=== PATIENT | male | born 1965 | race Caucasian/White ===

== ENCOUNTER 2020-05-14 15:37 | Emergency (ER) | payer BC, SELFPAY ==
[2020-05-14 15:49] VITALS: BP 137/84; PULSE 79; RESP 20; TEMP 36.9; O2SAT 94
--- NOTE | 2020-05-14 15:52 | ED.URI ---
HPI - URI/Sore Throat General Chief Complaint: Upper Respiratory Infection Stated Complaint: upper respiratory infection Source: patient and RN notes reviewed Limitations: no limitations History of Present Illness HPI Narrative: The patient, who is a smoker on several routine meds, presents with congestion. Patient states he has a least 1/2-week, 4 to 5-day history of scratchy throat , chills [w/o measured fever], congestion, myalgias with frontal/sinus headache and recurrence of positional/nighttime wheezing. Symptoms are mild, family members have been mildly unwell. No fever measured, CP, loss of taste/smell, S OB, sputum changes,N/V/D , travel history, calf pain/ edema . He reports he had chest CT in the last weeks, which was reportedly noncontributory. Related Data Home Medications Medication Instructions Recorded Confirmed atorvastatin 20 mg PO DAILY 07/14/19 07/14/19 escitalopram oxalate 10 mg PO DAILY 07/14/19 07/14/19 lisinopril 20 mg PO DAILY 07/14/19 07/14/19 omeprazole 20 mg PO DAILY 07/14/19 07/14/19 trazodone 100 mg PO HS 07/14/19 07/14/19 hydroxyzine HCl 05/14/20 Allergies Allergy/AdvReac Type Severity Reaction Status Date / Time No Known Allergies Allergy Verified 07/14/19 10:43 Review of Systems Review of Systems: Narrative: General/Constitutional: No weight loss,fever Eyes: N0: Redness,discharge Ears/Nose/Throat: No: Epistaxis,ear discharge Respiratory: Denies: Hemoptysis Gastrointestinal: No Vomiting, Bleeding-rectal Skin: No Lumps, eruption Neurologic: No Focal Weakness,Sz Hematologic: Denies: Petechiae/Purpura Psychiatric: No: Suicida ideationl All Other Systems: Reviewed and Negative PMFSH Comments At time of signature, agree with nursing past medical, surgical, social and family history. There is no relevant family history pertinent to the presenting complaint Exam Narrative: Exam Narrative: General Appearance: Well appearing, Well nourished EYE: PERRLA, Conjunctiva clear Ears: Auditory canal normal, TM normal Nose: Rhinorrhea, Mucousal erythema Mouth/Throat: MM moist, Uvula midline, Pharyngeal erythema Neck: Supple, No adenopathy Respiratory: No respiratory distress, Breath sounds equal, CTA inc on forced expiration. Cardiovascular: RRR, No JVD Musculoskeletal: Non tender, Normal strength Skin: Warm, Dry Neurological: A&O x3, CN II-XII intact Psychiatric: Normal mood, Normal affect Course Vital Signs Vital signs: Vital Signs Temperature 98.4 F 05/14/20 15:49 Pulse Rate 79 05/14/20 15:49 Respiratory Rate 20 05/14/20 15:49 Blood Pressure 137/84 05/14/20 15:49 Pulse Oximetry 94 05/14/20 15:49 Temperature 98.4 F 05/14/20 15:49 Pulse Rate 79 05/14/20 15:49 Respiratory Rate 20 05/14/20 15:49 Blood Pressure 137/84 05/14/20 15:49 Pulse Oximetry 94 05/14/20 15:49 Discharge Plan Discharge Clinical Impression: URI (upper respiratory infection) Qualifiers: URI type: unspecified URI Qualified Code(s): J06.9 - Acute upper respiratory infection, unspecified Patient Disposition: Home, Self-Care Condition: Stable Instructions: Antibiotic Form Prescriptions: New azithromycin 250 mg tablet See Rx Instructions .ROUTE .COMPLEX Qty: 6 RF: 0 codeine-guaifenesin 10-100 mg/5 mL liquid 7.5 ml PO Q6H PRN (Reason: cough) Qty: 118 RF: 0 benzonatate [Tessalon Perles] 100 mg capsule 100 mg PO TID Qty: 20 RF: 1 albuterol sulfate [Ventolin HFA] 90 mcg/actuation HFA aerosol inhaler 2 puff INHALATION QID PRN (Reason: shortness of breath or wheezing) Qty: 8.5 RF: 1 No Action hydroxyzine HCl 50 mg tablet RF: 0 atorvastatin 20 mg Tablet 20 mg PO DAILY RF: 0 lisinopril 20 mg Tablet 20 mg PO DAILY RF: 0 trazodone 100 mg Tablet 100 mg PO HS RF: 0 omeprazole 20 mg Capsule,Delayed Release(Dr/Ec) 20 mg PO DAILY RF: 0 escitalopram oxalate 10 mg Tablet 10 mg PO DAILY RF:
== END 2020-05-14 16:30 | disposition home or self-care (01) ==
PROVIDERS: Emergency Provider Emergency Medicine; PCP Family Medicine
DX: J06.9 Acute upper respiratory infection, unspecified (principal); Z20.828 Contact with and (suspected) exposure to other viral communicable diseases; E78.00 Pure hypercholesterolemia, unspecified; I10 Essential (primary) hypertension; K21.9 Gastro-esophageal reflux disease without esophagitis; F41.9 Anxiety disorder, unspecified; F32.9 Major depressive disorder, single episode, unspecified
CPT/HCPCS: 99213; G0463

== ENCOUNTER → 2020-07-13 15:18 | Outpatient (CLI) | payer BC, SELFPAY ==
--- NOTE | ~2020-07-13 | XR_ITS ---
XR chest 2V DATE: 07/13/2020 15:41 INDICATION: Respiratory tract infection TECHNIQUE: 2 views COMPARISON: 01/24/2017 two-view chest FINDINGS: Normal heart size. The lungs are hyperinflated, with relative flattening the diaphragm, sug gesting possible obstructive airways disease. No pulmonary infiltrate or consolidation or pulmonary m ass lesion is detected. No pleural effusion. No pneumothorax. IMPRESSION: Bilateral hyperinflation; no active cardiopulmonary disease Reviewed, dictated and finalized at location A. [employer] TECHNICAL OFFICER
== END ==
PROVIDERS: PCP Family Medicine; Visit Provider Family Medicine
DX: J98.8 Other specified respiratory disorders (principal); R91.8 Other nonspecific abnormal finding of lung field
CPT/HCPCS: 71046

== ENCOUNTER 2021-09-28 10:14 | Emergency (ER) | payer BC, SELFPAY ==
--- NOTE | ~2021-09-28 | XR_ITS ---
EXAMINATION: XR chest 2V DATE: 09/28/2021 10:48 INDICATION: Cough and fever. TECHNIQUE: Frontal and lateral views of the chest were obtained. COMPARISON: Chest 2 views 07/13/2020 FINDINGS: There are airspace opacities in basilar right lower lobe, consistent with pneumonia. No ple ural effusion or pneumothorax. The heart size is normal. IMPRESSION: 1. Right lower lobe pneumonia. Reviewed, dictated and finalized at location A.
--- NOTE | 2021-09-28 10:28 | ED.URI ---
HPI - URI/Sore Throat General Chief Complaint: Upper Respiratory Infection Stated Complaint: Cough,Body Aches,Chills,Congestion Time Seen by Provider: 09/28/21 10:34 Source: patient and RN notes reviewed Mode of arrival: ambulatory Limitations: no limitations History of Present Illness HPI Narrative: 56-year-old male presented for complaint of sinus congestion, body aches, fever/chills and rigors, rare nonproductive cough and pain with coughing, chest heaviness and shortness of breath for about 4 days. Fever at home 100.7 today. Endorses had similar symptoms approximately 1 week ago, tested negative. They had [facility]. Patient is boosted for Covid and had flu vaccine. He smokes 1 PPD. Uses as needed inhaler and Trelegy daily for mild COPD per pt. Recent sinus surgery 06/2021. Related Data Home Medications Medication Instructions Recorded Confirmed atorvastatin 20 mg PO DAILY 07/14/19 09/28/21 escitalopram oxalate 10 mg PO DAILY 07/14/19 09/28/21 lisinopril 20 mg PO DAILY 07/14/19 09/28/21 omeprazole 20 mg PO DAILY 07/14/19 09/28/21 trazodone 100 mg PO HS 07/14/19 09/28/21 hydroxyzine HCl 50 mg PO DAILY 05/14/20 09/28/21 [id number]-[id number] 2 inh INHALATION DAILY 09/28/21 09/28/21 [Trelegy Ellipta] metoprolol succinate 100 mg PO DAILY 09/28/21 09/28/21 Allergies Allergy/AdvReac Type Severity Reaction Status Date / Time No Known Allergies Allergy Verified 09/28/21 10:35 Review of Systems Review of Systems: CONSTITUTIONAL: Endorses malaise, chills, sweats, fever EYES: Denies visual changes, redness, or discharge ENT: Reports rhinorrhea, congestion, sinus pain CARDIOVASCULAR: Denies chest pain, palpitations, edema RESPIRATORY: Reports cough, post nasal drainage, dyspnea GASTROINTESTINAL: Denies abdominal pain, nausea, vomiting, diarrhea SKIN: Denies rash or itching MUSCULOSKELETAL: Endorses myalgia NEUROLOGIC: Denies headache Exam Narrative: GENERAL: Ill-appearing, nontoxic HEAD: Normocephalic EYES: PERRLA, conjunctivae clear ENT: Mucous membranes moist. TM pearly reyna with dull light reflex bilaterally; no tragal tenderness. Oropharynx erythematous without lesions or exudate, no drooling, no hoarseness, no trismus, uvula midline. NECK: Supple. No lymphadenopathy CHEST: Clear and diminished breath sounds bilat. No wheezing, rhonchi, rales, or stridor. No respiratory distress, speaks in full sentences. HEART: Regular rate and rhythm. No murmur heard. SKIN: Warm, dry, no rash. NEURO: Alert and oriented x3. PSYCH: Normal mood and affect Course Course Emergency Course: Patient is aware of diagnosis, understands and agrees to treatment plan. Anticipatory guidance given. Patient agrees to follow-up as directed and is aware of reasons to seek care at the emergency department. Portions of this record may have been created with voice recognition software Level of Care: Express Care Visit Vital Signs Vital signs: Vital Signs Temperature 98.6 F 09/28/21 10:32 Pulse Rate 110 H 09/28/21 10:32 Respiratory Rate 20 09/28/21 10:32 Blood Pressure 113/69 09/28/21 10:32 Pulse Oximetry 91 09/28/21 10:32 Temperature 98.6 F 09/28/21 10:32 Pulse Rate 110 H 09/28/21 10:32 Respiratory Rate 20 09/28/21 10:32 Blood Pressure 113/69 09/28/21 10:32 Pulse Oximetry 91 09/28/21 10:32 reviewed MDM - URI/Sore Throat MDM Narrative Medical decision making narrative: Result of chest x-ray reviewed with patient, he is aware of the diagnosis of pneumonia, prescription for antibiotic and steroid sent. He is advised to follow-up with PCP, calling today to schedule an appointment. Also aware oxygen saturation was 91%, advised pulse ox at home and closely monitoring symptoms. Patient will go to the ER for any worsening symptoms or concerns. Differential Diagnosis Differential diagnosis: Likely upper respiratory infection, sinusitis, viral infection and other (pneumonia)
[2021-09-28 10:32] VITALS: BP 113/69; PULSE 110; RESP 20; TEMP 37; O2SAT 91
== END 2021-09-28 11:42 | disposition home or self-care (01) ==
PROVIDERS: Emergency Provider Nurse Practitioner Family
DX: J18.1 Lobar pneumonia, unspecified organism (principal); Z20.822 Contact with and (suspected) exposure to COVID-19; F17.200 Nicotine dependence, unspecified, uncomplicated; J44.9 Chronic obstructive pulmonary disease, unspecified
CPT/HCPCS: 71046; 87426; 87804; 99213; C9803; G0463

== ENCOUNTER 2022-07-01 12:43 | Emergency (ER) | payer BC, SELFPAY ==
[2022-07-01 13:55] VITALS: BP 136/81; PULSE 73; RESP 18; TEMP 36.2; O2SAT 98
[2022-07-01 13:59] VITALS: BP 136/81; PULSE 73; RESP 18; TEMP 36.2; O2SAT 98
--- NOTE | 2022-07-01 14:58 | ED.GENADULT ---
HPI - General Adult General Chief complaint: Upper Respiratory Infection Stated complaint: Cough,Congestion,Headache Time Seen by Provider: 07/01/22 14:58 Source: patient Mode of arrival: ambulatory Limitations: no limitations History of Present Illness HPI narrative: 56-year-old male patient presents to the [facility] with complaints of cold symptoms last 7-10 days. Patient states that last 3 days he noticed his cough is getting worse feels short of breath at times. Patient states he has had some chills but denies any body aches or fevers the last 3 days. Patient states he is a smoker at this time. Patient states he did get an influenza and COVID vaccine this year. Related Data Home Medications Medication Instructions Recorded Confirmed atorvastatin 20 mg tablet 20 mg PO DAILY 07/14/19 07/01/22 escitalopram oxalate 10 mg tablet 10 mg PO DAILY 07/14/19 07/01/22 lisinopril 20 mg tablet 20 mg PO DAILY 07/14/19 07/01/22 omeprazole 20 mg capsule,delayed 20 mg PO DAILY 07/14/19 07/01/22 release trazodone 100 mg tablet 100 mg PO HS 07/14/19 07/01/22 hydroxyzine HCl 50 mg tablet 50 mg PO DAILY 05/14/20 07/01/22 cetirizine 10 mg tablet (Zyrtec) 10 mg PO DAILY 09/28/21 07/01/22 fluticasone fur. 100 mcg-umeclid 2 inh inhalation DAILY 09/28/21 07/01/22 62.5 mcg-vilant 25 mcg inhalat.powder (Trelegy Ellipta) metoprolol succinate 100 mg 100 mg PO DAILY 09/28/21 07/01/22 tablet,extended release 24 hr Allergies Allergy/AdvReac Type Severity Reaction Status Date / Time No Known Allergies Allergy Verified 07/01/22 14:45 Review of Systems Review of Systems: CONSTITUTIONAL: Denies fever, chills, or sweats. EYES: Denies visual changes, redness, or discharge. ENT: positive rhinorrhea, congestion, denies sore throat, or otalgia. CARDIOVASCULAR: Denies chest pain, palpitations, or edema. RESPIRATORY: positive cough with intermittent dyspnea. GASTROINTESTINAL: Denies abdominal pain, nausea, vomiting, or diarrhea. GENITOURINARY: Denies dysuria or hematuria. SKIN: Denies rash or itching. MUSCULOSKELETAL: Denies back pain, joint pain, or myalgia. NEUROLOGIC: Denies headache, numbness, or weakness. PSYCHIATRIC: Denies anxiety or depression. [facility] Past Medical History Medical History Eczema Hypercholesteremia Hypertension Psoriasis Surgical History Surgical History History of orthopedic surgery right knee scope Family History Family History Other Carcinoma of colon Emphysema lung Social History Social History (Updated 07/01/22 @ 15:11 by KEVAN Springer) Smoking status: Current every day smoker Comments At the time of my signature I agree with nursing past medical history, surgical, social, and family history. There is no relevant family history pertinent to the presenting complaint. Exam Narrative: GENERAL: Well-appearing, well-nourished, and in no acute distress. HEAD: Normocephalic, atraumatic. EYES: PERRLA and EOMI. ENT: Nares With erythema and edema noted bilaterally, no rhinorrhea or epistaxis. Mucous membranes moist. posterior pharynx with no erythema, tonsillectomy, exudates or lesions present. Bilateral TMs are clear with no erythema or foreign bodies in the canal NECK: Supple. No lymphadenopathy CHEST: Clear to auscultation. No respiratory distress. patient able talk in clear complete sentences. No tripoding noted on exam. HEART: Regular rate and rhythm. No murmur heard. Normal peripheral pulses. ABDOMEN: Soft, nontender, nondistended, normal active bowel sounds. EXTREMITIES: Normal range of motion. No edema. SKIN: Warm, dry, no rash. NEURO: No focal deficits. Alert and oriented x3. Course Course Level of Care: Express Care Visit Vital Signs Vital signs: Vital Signs Temperature 36.2 C L 07/01/22 13:55 Pulse Ra
== END 2022-07-01 15:12 | disposition home or self-care (01) ==
PROVIDERS: Emergency Provider Nurse Practitioner Family
DX: J06.9 Acute upper respiratory infection, unspecified (principal); F17.290 Nicotine dependence, other tobacco product, uncomplicated; E78.00 Pure hypercholesterolemia, unspecified; I10 Essential (primary) hypertension; L40.9 Psoriasis, unspecified
CPT/HCPCS: 99213; G0463

== ENCOUNTER 2022-08-10 15:03 | Emergency (ER) | payer BC, SELFPAY ==
[2022-08-10 15:16] VITALS: BP 119/78; PULSE 78; RESP 18; TEMP 36.3; O2SAT 99
--- NOTE | 2022-08-10 15:21 | ED.URI ---
HPI - URI/Sore Throat General Chief Complaint: Upper Respiratory Infection Stated Complaint: Sore Throat,Body Aches,Congestion Time Seen by Provider: 08/10/22 15:18 Source: patient Mode of arrival: ambulatory Limitations: no limitations History of Present Illness HPI Narrative: Mr. Saucedo is a 56-year-old male patient presenting to clinic today with complaints of sore throat, body aches, congestion, and chills. He states he does not know if he has had a fever or not. Has had exposure to someone with strep. MD elicited complaint: cough, sore throat, rhinorrhea, nasal congestion and sinus pain Related Data Home Medications Medication Instructions Recorded Confirmed atorvastatin 20 mg tablet 20 mg PO DAILY 07/14/19 08/10/22 escitalopram oxalate 10 mg tablet 10 mg PO DAILY 07/14/19 08/10/22 lisinopril 20 mg tablet 20 mg PO DAILY 07/14/19 08/10/22 omeprazole 20 mg capsule,delayed 20 mg PO DAILY 07/14/19 08/10/22 release trazodone 100 mg tablet 100 mg PO HS 07/14/19 08/10/22 hydroxyzine HCl 50 mg tablet 50 mg PO DAILY 05/14/20 08/10/22 cetirizine 10 mg tablet (Zyrtec) 10 mg PO DAILY 09/28/21 08/10/22 fluticasone fur. 100 mcg-umeclid 2 inh inhalation DAILY 09/28/21 08/10/22 62.5 mcg-vilant 25 mcg inhalat.powder (Trelegy Ellipta) metoprolol succinate 100 mg 100 mg PO DAILY 09/28/21 08/10/22 tablet,extended release 24 hr Allergies Allergy/AdvReac Type Severity Reaction Status Date / Time No Known Allergies Allergy Verified 08/10/22 15:11 Review of Systems Review of Systems: Pertinent positives per HPI. Patient denies any fever, rash, headache, visual changes, dizziness, shortness of breath, chest pain, palpitations, nausea, vomiting, diarrhea, constipation, abdominal pain, or any urinary issues. [facility] Past Medical History Medical History Eczema Hypercholesteremia Hypertension Psoriasis Surgical History Surgical History History of orthopedic surgery right knee scope Family History Family History Other Carcinoma of colon Emphysema lung Social History Social History Smoking status: Current every day smoker Comments At the time of my signature, I reviewed and agree with the nursing past medical, surgical, social, and family history. There is no relevant family history pertinent to the patient complaint. Exam Narrative: General: Well-developed, well nourished, in no apparent distress Head: Normocephalic, atraumatic Eyes: Pupils equally round and reactive to light bilaterally, EOM intact, sclera and conjunctive clear, no discharge, lids normal Ears: TMs intact and clear, ear canals clear, no drainage, grossly hearing normal. Nose: Nares patent, clear nasal discharge, mild inflammation, no sinus tenderness. Mouth: Oral pharynx without lesions or masses, good dentition, MMM. Oropharynx red with tonsillar swelling without exudate Neck: Supple, trachea midline, mild enlargement of anterior or posterior cervical nodes, no thyroid masses or goiter palpable. Cardio: Regular rate and rhythm, s1 and s2 normal, no murmur appreciated. Resp: Clear to auscultation bilaterally, no rhonchi, rales, wheezing or rubs Course Course Emergency Course: Portions of this record may have been created with voice recognition software. Level of Care: Express Care Visit Vital Signs Vital signs: Vital Signs Temperature 36.3 C L 08/10/22 15:16 Pulse Rate 78 08/10/22 15:16 Respiratory Rate 18 08/10/22 15:16 Blood Pressure 119/78 08/10/22 15:16 Pulse Oximetry 99 08/10/22 15:16 Oxygen Delivery Room Air 08/10/22 15:16 Temperature 36.3 C L 08/10/22 15:16 Pulse Rate 78 08/10/22 15:16 Respiratory Rate 18 08/10/22 15:16 Blood Pressure 119/78 0
== END 2022-08-10 15:55 | disposition home or self-care (01) ==
PROVIDERS: Emergency Provider Nurse Practitioner Family
DX: B34.9 Viral infection, unspecified (principal); J06.9 Acute upper respiratory infection, unspecified; J02.9 Acute pharyngitis, unspecified; Z20.822 Contact with and (suspected) exposure to COVID-19; F17.200 Nicotine dependence, unspecified, uncomplicated; E78.00 Pure hypercholesterolemia, unspecified; I10 Essential (primary) hypertension; L40.9 Psoriasis, unspecified
CPT/HCPCS: 87081; 87426; 87804; 87880; 99213; C9803; G0463

== ENCOUNTER → 2022-11-13 11:29 | Outpatient (CLI) | payer BC, SELFPAY ==
--- NOTE | ~2022-11-13 | XR_ITS ---
Clinical Indication: Leukocytosis PA and lateral views of the chest: Comparison: 09/28/2021 Findings: The lungs are clear, without evidence of focal consolidation or pleural effusion. Cardiome diastinal silhouette is within normal limits. Bones and soft tissues are unremarkable. Impression: Normal chest. Reviewed, dictated and finalized at [facility]. Impression: Normal chest.
== END ==
DX: D72.829 Elevated white blood cell count, unspecified (principal)
CPT/HCPCS: 71046

== ENCOUNTER 2023-06-01 10:33 | Outpatient (CLI) | payer BC, SELFPAY ==
--- NOTE | 2023-06-01 10:46 | ECG_ITS ---
Measurements Intervals [place] Rate: 76 P: 58 LA: 160 QRS: 55 QRSD: 92 T: 42 QT: 370 QTc: 417 Interpretive Statements SINUS RHYTHM BASELINE WANDER- I, II NORMAL ECG NO PREVIOUS ECG AVAILABLE FOR COMPARISON Electronically Signed On 06-01-2023 16:21:37 [employer] by Rafa Leigh D.O.
== END 2023-06-01 10:34 | disposition home or self-care (01) ==
DX: Z79.899 Other long term (current) drug therapy (principal)
CPT/HCPCS: 93005

== ENCOUNTER 2023-06-15 09:07 | Outpatient (CLI) | payer BC, SELFPAY ==
--- NOTE | ~2023-06-15 | CT_ITS ---
EXAMINATION: CT lung screening DATE: 06/15/2023 09:54 INDICATION: Nicotine dependence TECHNIQUE: Computed tomography (CT) of the chest was performed without intravenous contrast. The dose -length product was 312.26 mGy-cm. Automated exposure control and iterative reconstruction technique were employed. COMPARISON: Chest x-ray dated 11/13/2022 FINDINGS: Heart size normal. No significant pleural or pericardial effusion. Upper abdomen is unremar kable. No thoracic lymphadenopathy. Mild atherosclerosis. There is emphysema. No endobronchial lesion s. No pneumothorax. There are upper lobe nodules measuring 3 mm or less, likely benign. There is ling ular atelectasis/scarring. Mild thoracic spondylosis. Wedge-shaped appearance to lower thoracic verte bra, likely chronic. No acute osseous abnormality. IMPRESSION: 1. Lung-RADS category 2: Benign appearance or behavior. Continue annual screening with noncontrast lo w-dose chest CT in 12 months. 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 Lung-RADS category 2: Benign appearance or behavior. Continue annual screeni ng with noncontrast low-dose chest CT in 12 months.
== END 2023-06-15 09:08 | disposition home or self-care (01) ==
LOC: ANHIMG 09:10
DX: Z12.2 Encounter for screening for malignant neoplasm of respiratory organs (principal); Z87.891 Personal history of nicotine dependence
CPT/HCPCS: 71271

== ENCOUNTER 2025-02-01 13:46 | Outpatient (CLI) | payer OTHER, SELFPAY ==
--- NOTE | ~2025-02-01 | US_ITS ---
US soft tissue groin LT 02/01/2025 14:12 Indication: Left groin pain with bulging Procedure: High-resolution ultrasound of the left inguinal canal Comparison: No prior studies for comparison. Findings: There is a left inguinal hernia containing bowel which exhibits peristalsis. Impression: 1: Left inguinal hernia containing bowel. Reviewed, dictated and finalized at location A. Impression: 1: Left inguinal hernia containing bowel.
== END 2025-02-01 13:47 | disposition home or self-care (01) ==
LOC: MICIMG 13:48
DX: K40.90 Unilateral inguinal hernia, without obstruction or gangrene, not specified as recurrent (principal)
CPT/HCPCS: 76882

== ENCOUNTER 2025-03-03 15:29 | Outpatient (CLI) | payer OTHER, SELFPAY ==
--- NOTE | ~2025-03-03 | CT_ITS ---
EXAMINATION: CT lung screening DATE: 03/03/2025 15:48 INDICATION: History of nicotine dependence TECHNIQUE: Computed tomography (CT) of the chest was performed without intravenous contrast. The dose-length product was 228.40 mGy-cm. Automated exposure control and iterative reconstruction technique were employed. COMPARISON: CT dated 06/15/2022 FINDINGS: Mild atherosclerosis of the aorta and coronary arteries. Heart size normal. No significant pleural or pericardial effusion. Upper abdomen is unremarkable. There is a new 6 mm left upper lobe nodule. There is an irregular shaped mass in the left upper lobe measuring 2.9 x 1.2 cm which is new, suspicious for neoplasm. There is a second 6 mm left upper lobe nodule, new. There is emphysema. IMPRESSION: 1. Multiple new left upper lobe nodules, largest measuring 2.9 x 1.2 cm, suspicious for neoplasm. Lung rads category 4B: Recommend tissue sampling or pet/CT examination. Reviewed, dictated and finalized at location A. IMPRESSION: 1. Multiple new left upper lobe nodules, largest measuring 2.9 x 1.2 cm, suspic ious for neoplasm. Lung rads category 4B: Recommend tissue sampling or pet/CT e xamination.
== END 2025-03-03 15:30 | disposition home or self-care (01) ==
LOC: MICIMG 15:31
PROVIDERS: Visit Provider Physician Assistant
DX: R91.8 Other nonspecific abnormal finding of lung field (principal); Z12.2 Encounter for screening for malignant neoplasm of respiratory organs; Z87.891 Personal history of nicotine dependence
CPT/HCPCS: 71271